=== PATIENT | female | born 1955 | race Caucasian/White ===

== ENCOUNTER 2018-06-07 17:35 | Inpatient (IN) | payer BC ==
[~2018-06-07] VITALS: Ht 172.7 cm; Wt 78.5 kg
--- NOTE | 2018-06-07 17:40 | NUR ---
Patient c/o sherri, 06/06, epigastric abdominal pain for the past 4-6 hours which radiates down to her right lower quadrant. A/O x4, VSS. Family at bedside. Waiting for MD patricio. will moniotr accordingly.
[2018-06-07] MEDS ORDERED: ONDANSETRON HCL/PF 4 MG/2 ML VIAL ONE (17:58)
[2018-06-07] MEDS ORDERED: HYDROMORPHONE INJ 2 MG/ML DISP.SYRIN ONE ×3 (17:58→21:03)
[2018-06-07] MEDS ORDERED: IV NS 0.9% 1,000 ML BAG IV ONE ×3 (18:00→19:30)
[2018-06-07] MEDS ORDERED: HYDROMORPHONE INJ 2 MG/ML DISP.SYRIN IV ONE ×3 (18:00→20:00)
[2018-06-07] MEDS ORDERED: ONDANSETRON HCL/PF 4 MG/2 ML VIAL IVP ONE (18:00)
[2018-06-07 18:03] LABS: BASOPHILS % (AUTO) 0.5 % (0.0-2.0); EOSINOPHILS % (AUTO) 0.5 % (0.0-6.0); HEMATOCRIT 39 % (33-45); HEMOGLOBIN 12.7 g/dL (11.5-14.8); LYMPHOCYTES # (AUTO) 0.3 /CMM (0.8-4.8); LYMPHOCYTES % (AUTO) 18.9 % (20.0-44.0); MEAN CORPUSCULAR HEMOGLOBIN 28 PG (26.0-33.0); MEAN CORPUSCULAR HGB CONC 32 g/dl (31.0-36.0); MEAN CORPUSCULAR VOLUME 85 fL (82-100); MONOCYTES # (AUTO) 0.1 /CMM (0.1-1.30); MONOCYTES % (AUTO) 6.4 % (2.0-12.0); NEUTROPHILS % (AUTO) 73.7 % (43.0-81.0); PLATELET COUNT (AUTO) 202 /CMM (150-450); RDW COEFFICIENT OF VARIATION 14.1 (11.5-15.0); RED BLOOD CELL COUNT(AUTO) 4.61 MIL/uL (4.0-5.2)
[2018-06-07 18:08] LABS: WHITE BLOOD COUNT (AUTO) 1.4 K/uL (4.3-11.0)
[2018-06-07 18:19] LABS: ALANINE AMINOTRANSFERASE 27 U/L (12-78); ALBUMIN 3.2 g/dL (3.4-5.0); ALKALINE PHOSPHATASE 45 U/L (46-116); ASPARTATE AMINOTRANSFERASE 14 U/L (15-37); BILIRUBIN,DIRECT 0.1 mg/dL (0.0-0.2); BILIRUBIN,TOTAL 0.4 mg/dL (0.2-1.0); CALCIUM, SERUM 10.7 mg/dL (8.5-10.1); CARBON DIOXIDE 23 mmol/L (21-32); CHLORIDE 104 mmol/L (98-107); CREATININE 1.3 mg/dL (0.6-1.3); GLUCOSE 116 mg/dL (74-106); LIPASE 174 U/L (73-393); SODIUM SERUM 140 mmol/L (136-145); TOTAL PROTEIN, SERUM 7.1 g/dL (6.4-8.2); UREA NITROGEN, BLOOD 26 mg/dL (7-18)
[2018-06-07 18:20] LABS: TROPONIN I < 0.017 ng/mL (0.00-0.056)
[2018-06-07 18:21] LABS: POTASSIUM 2.8 mmol/L (3.5-5.1)
--- NOTE | 2018-06-07 18:27 | NUR ---
CALLED FOR FADUMO BED
[2018-06-07] MEDS ORDERED: LOPE2CAP PO (18:29)
[2018-06-07] MEDS ORDERED: POMA3CAP PO (18:29)
[2018-06-07] MEDS ORDERED: DEXA4TAB PO (18:29)
[2018-06-07] MEDS ORDERED: ZOLP5TAB8 PO (18:29)
[2018-06-07] MEDS ORDERED: HYDR-548 PO (18:29)
[2018-06-07] MEDS ORDERED: PANT40TA2 PO (18:29)
[2018-06-07] MEDS ORDERED: MORP15TA7 PO (18:29)
[2018-06-07] MEDS ORDERED: TEMA15CA PO (18:29)
[2018-06-07] MEDS ORDERED: LEVO150T8 PO (18:29)
[2018-06-07] MEDS ORDERED: GABA-534 PO (18:29)
[2018-06-07] MEDS ORDERED: LORA1TAB PO (18:30)
[2018-06-07] MEDS ORDERED: PIPERACILLIN /TAZOBACTAM 3.375 G in IV D5W 50 ML IV ONE (18:30)
[2018-06-07] MEDS ORDERED: ASPI-1152 PO (18:30)
[2018-06-07] MEDS ORDERED: ONDA4TAB8 PO (18:30)
--- NOTE | 2018-06-07 18:37 | NUR ---
Dr. Andry Jacobo [phone]
--- NOTE | 2018-06-07 18:46 | NUR ---
CHANGED TO ICU BED HOUSE SUP INFORMED
--- NOTE | 2018-06-07 18:50 | NUR ---
CALLED HOUSE SUP FOR PICC LINE.
--- NOTE | 2018-06-07 18:56 | NUR ---
RECEIVED CALL FROM DR WASHINGTON TO PREPARE CONSENT FOR EXPLORATORY LAPAROTOMY. FAMILY WANTS TO TALK WITH SURGEON FIRST BEFORE SIGNING THE CONSENT.
[2018-06-07] MEDS: POTASSIUM CL. PREMIX PERIPHER. 50 ML IV SCH ×7 (19:00→23:55)
[2018-06-07] MEDS ORDERED: PIPERACILLIN /TAZOBACTAM 3.375 G VIAL IV ONE ×2 (19:07→23:16)
[2018-06-07] MEDS ORDERED: POTASSIUM CL. PREMIX PERIPHER. 200 ML ONE (19:16)
[2018-06-07 19:20] LABS: INR 0.94 (0.87-1.13)
--- NOTE | 2018-06-07 19:35 | NUR ---
POTASSIUM CHLORIDE IV BAG 10/31 STARTED IN ED
--- NOTE | 2018-06-07 19:57 | NUR ---
REPORT GIVEN TO ICU NURSE DELONTE FOR GUSTAVO
[2018-06-07] MEDS ORDERED: MORPHINE SULFATE INJ 2 MG/ML DISP.SYRIN IV PRN (20:00)
[2018-06-07] MEDS ORDERED: ACETAMINOPHEN 650 MG/SUPP.RECT RC PRN (20:00)
[2018-06-07] MEDS ORDERED: Z GUARD REMEDY 2 OZ OINT TP PRN (20:00)
[2018-06-07] MEDS ORDERED: IV NS 0.9% 1,000 ML IV SCH (20:00)
[2018-06-07] MEDS ORDERED: ONDANSETRON HCL/PF 4 MG/2 ML VIAL IVP PRN (20:00)
[2018-06-07] MEDS ORDERED: ACETAMINOPHEN 325 MG TABLET PO PRN (20:00)
--- NOTE | 2018-06-07 20:05 | NUR ---
POTASSIUM CHLORIDE BAG 2/4 STARTED IN ED. RECEIVED ORDERS FROM MD ORDOÑEZ TO CONTINUE THE REMAINING POTASSIUM CHLORIDE BAGS ON ADMISSION
[2018-06-07 20:09] LABS: BAND % (MANUAL) 14 % (0.0-5.0); EOSINOPHILS % (MANUAL) 1 % (0-4); LYMPHOCYTES % (MANUAL) 25 % (16-48); MONOCYTES % (MANUAL) 5 % (0-11.0); NEUTROPHILS % (MANUAL) 53 (42-76); REACTIVE LYMPHOCYTES 2 % (0-0)
--- NOTE | 2018-06-07 20:30 | NUR ---
COGNOS ANALYST NOTES Picc line RN at bedside,for PICC insertion.Consent obtained. Successfully inserted PICC line via YVONNE, as per Picc line RN gibson to use.
--- NOTE | 2018-06-07 20:30 | NUR ---
AUTO CAMP ATTENDANT NOTES Received patient from ER c/o abdominal pain with Ct scan perforated sigmoid colon ,for Explor Lap tonight.Patient awake,alert,in pain ,not in any distress .
[2018-06-07 20:37] VITALS: BP 171/80
[2018-06-07] MEDS ORDERED: SUCCINYLCHOLINE CHLORIDE 20 MG/ML VIAL ONE (21:03)
[2018-06-07] MEDS ORDERED: ROCURONIUM BROMIDE 50 MG/5 ML ONE ×2 (21:03→21:46)
[2018-06-07 21:09] VITALS: BP 139/44
--- NOTE | 2018-06-07 21:10 | NUR ---
CAREER GUIDANCE COUNSELOR NOTES came to see patient,spoke to patient and family explained the procediure ,consent obtained,signed by patient.Patient taken to the OR for Exploratory Laparotomy.
[2018-06-07] MEDS ORDERED: METRONIDAZOLE 500MG/ NS 100ML 100 ML IV ONE ×2 (21:30→21:36)
--- NOTE | 2018-06-07 22:50 | NUR ---
ASSOCIATE PROFESSOR OF KINESIOLOGY NOTES Patient back from OR,awake,alert with O2 via face mask,S/P Sigmoid Colon resection with Proximal Colostomy,Placement of Abdominal Drain.,Lysis of Adhesions, Post Op Diagnosis -Perforated Sigmoid Colon with Fecal Peritonitis and Adhesion.Patient stable,not in any distress but still in pain .Encouraged deep breathing exercises.Comfort care done,needs attended.
[2018-06-07 23:00] VITALS: BP 168/102
[2018-06-07 23:05] VITALS: BP 156/97
[2018-06-07 23:30] VITALS: BP 130/84
[2018-06-07] MEDS ORDERED: oxyCODONE IR immediate release 5 MG PO PRN (23:30)
[2018-06-07] MEDS ORDERED: NALOXONE HCL 0.4 MG/ML AMPUL IV PRN (23:30)
[2018-06-07] MEDS ORDERED: Potassium Chloride 20 MEQ in IV D5/0.45 NACL 1,000 ML IV PRN (23:30)
[2018-06-08] VITALS (16 sets, daily range): BP systolic 95–133; BP diastolic 36–82
--- NOTE | 2018-06-08 | NUR ---
ARCHIVIST ECONOMIC HISTORY NOTES Awake.alert,still with post op pain,awaiting TOOL DISTRIBUTOR pump to start TOOL DISTRIBUTOR Dilaudid for pain control.Operative dressing at mid abdomen with dressing dry and intact,Colostomy bag at LLQ with very scant bloody drainage,RAIMUNDO drain at LLQ with bulb suction with seropus drainage.Comfort care done.needs attended,family at bedside.
[2018-06-08] MEDS: POTASSIUM CL. PREMIX PERIPHER. 50 ML IV SCH ×2 (00:21→02:05)
[2018-06-08] MEDS: IV PREMIX D5 1/2NS + KCL 1,000 ML IV SCH ×2 (00:21→06:46)
[2018-06-08] MEDS: HYDROMORPHONE MDV 30 MG in IV NS 0.9% 15 ML, PCA TOTAL VOLUME 1 BAG IV PRN ×3 (00:28)
[2018-06-08] MEDS: METOCLOPRAMIDE HCL 10 MG/2 ML VIAL IV SCH ×5 (00:31→23:57)
--- NOTE | 2018-06-08 00:35 | NUR ---
CHAPTER RELATIONS ADMINISTRATOR NOTES Started WIG MAKER Dilaudid 1mg bolus,WIG MAKER dose 0.1 mg(may increase to 0.3 mg),Lock out-8 min.4 hour limit dose of 5mg.no continous dose.
[2018-06-08 04:46] LABS: EOSINOPHILS % (AUTO) 0.2 % (0.0-6.0); HEMATOCRIT 32 % (33-45); HEMOGLOBIN 10.6 g/dL (11.5-14.8); LYMPHOCYTES # (AUTO) 0.1 /CMM (0.8-4.8); LYMPHOCYTES % (AUTO) 3.5 % (20.0-44.0); MEAN CORPUSCULAR HEMOGLOBIN 29 PG (26.0-33.0); MEAN CORPUSCULAR HGB CONC 33 g/dl (31.0-36.0); MEAN CORPUSCULAR VOLUME 87 fL (82-100); MONOCYTES # (AUTO) 0.2 /CMM (0.1-1.30); MONOCYTES % (AUTO) 6.1 % (2.0-12.0); NEUTROPHILS # (AUTO) 3.1 /CMM (1.8-8.9); NEUTROPHILS % (AUTO) 90.2 % (43.0-81.0); PLATELET COUNT (AUTO) 145 /CMM (150-450); RDW COEFFICIENT OF VARIATION 14.8 (11.5-15.0); RED BLOOD CELL COUNT(AUTO) 3.71 MIL/uL (4.0-5.2); WHITE BLOOD COUNT (AUTO) 3.5 K/uL (4.3-11.0)
[2018-06-08 04:46] LABS: APPEARANCE,URINE CLEAR (CLEAR); BILIRUBIN,URINE NEGATIVE (NEGATIVE); BLOOD, URINE TRACE-INTA Ery/uL (NEGATIVE); COLOR,URINE YELLOW (YELLOW); KETONES,URINE NEGATIVE (NEGATIVE); LEUKOCYTE ESTERASE ,URINE NEGATIVE (NEGATIVE); NITRITE, URINE NEGATIVE (NEGATIVE); PH,URINE 7.5 (5.0-8.0); PROTEIN,URINE TRACE mg/dl (NEGATIVE); UGLUCOSE NEGATIVE (NEGATIVE); UROBILINOGEN,URINE 0.2 EU/dL (0.2)
[2018-06-08 04:49] LABS: CALCIUM, SERUM 7.6 mg/dL (8.5-10.1); CREATININE 1.2 mg/dL (0.6-1.3); MAGNESIUM 1.7 mg/dL (1.8-2.4); POTASSIUM 4.8 mmol/L (3.5-5.1)
[2018-06-08] MEDS: METRONIDAZOLE 500MG/ NS 100ML 500 MG in PREMIX 1 EA IV SCH ×3 (04:55→20:49)
[2018-06-08 05:00] LABS: BACTERIA,URINE None seen /HPF (None Seen); RBC,URINE 0-2 /HPF (0-2); SQUAMOUS EPITHELIAL CELL,UR Few /HPF (None Seen); WBC,URINE 0-2 /HPF (0-3)
[2018-06-08] MEDS ORDERED: CEFAZOLIN 1 GM in IV D5W 50 ML IV SCH (05:00)
[2018-06-08] MEDS ORDERED: ANCEF 1 GM/50 ML D5W IV SCH ×2 (05:00)
[2018-06-08] MEDS ORDERED: METRONIDAZOLE 500MG/ NS 100ML 500 MG in PREMIX 1 EA IV SCH (05:00)
[2018-06-08 05:13] LABS: BAND % (MANUAL) 7 % (0.0-5.0); LYMPHOCYTES % (MANUAL) 9 % (16-48); MONOCYTES % (MANUAL) 9 % (0-11.0); MYELOCYTES % 1 % (0-0); NEUTROPHILS % (MANUAL) 74 (42-76)
--- NOTE | 2018-06-08 07:15 | NUR ---
MERCURY WASHER NOTES RECEIVED PATIENT AOX3 -4 , NOT IN ACUTE DISTRESS , DENIES SOB , COMPLAINING OF PAIN AROUND ABDOMINAL AREA 02/04 , ON 3LPM NC SPO2 OF 100% , ST 110 ON BEDSIDE MONITOR , FC DRAINING WELL VIA GRAVITY WITH CLEAR YELLOW URINE , ABDOMINAL DRESSING C/D/I WITH NO ACTIVE BLEEDING NOTED , YVONNE PICC LINE WITH D5 1/2 NS WITH 20MEQ KCL @ 200ML/HR INFUSING WELL , DILAUDID NP PUMP SETTINGS ORDERED SETTINGS REVIEWED , PIV'S PATENT AND INTACT SL , ALL NEEDS ATTENDED , WILL CONTINUE TO MONITOR .
--- NOTE | 2018-06-08 07:16 | NUR ---
MFTS ELIGIO LEFT LOWER QUADRANT COLOSTOMY NOTED NO OUTPUT NOTED , RIGHT LOWER QUADRANT RAIMUNDO DRAIN SUCTIONING VIA NEGATIVE GRAVITY WITH SEROSANGINOUS OUTPUT ,
--- NOTE | 2018-06-08 07:30 | NUR ---
FRACTIONATING STILL OPERATOR NOTES Called the lab to repeat Potassium level (venous stick ,not from the line) K=4.8 this am but specimen was drawn from the PICC line (with IV infusing with potassium incorporation but IV stopped for 10-15 min.).Will follow result. 0710 report given to Jamaal TRUJILLO.
[2018-06-08] MEDS: PANTOPRAZOLE 40 MG VIAL IV SCH (09:15)
--- NOTE | 2018-06-08 09:30 | NUR ---
READERS' ADVISORY SERVICE LIBRARIAN NOTES SEEN AND EVALUATED BY DR WASHINGTON , DISCUSSED CURRENT LABS , PAIN OF 3-4/10 , AROUND ABDOMINAL AREA , ON DILAUDID BOILERMAKER INDUSTRIAL BOILERS PUMP SETTINGS ORDERED , SURGERY SITE C/D/I , RAIMUNDO DRAIN DRAINING WITH SEROSANGUINEOUS OUTPUT VIA NEGATIVE SUCTION BULB , , K OF 5.4 , IVF OF D5 1/2 NS WITH 20 MEQ KCL ON HOLD DUE TO K LEVEL , PER MD CHANGE IVF TO D5 1/2 NS @ 125ML/HR , ORDER PT AND AM LABS ROBBIE , MANDO TO TRANSFER TO MS
[2018-06-08] MEDS ORDERED: Potassium Chloride 20 MEQ in IV D5/0.45 NACL 1,000 ML IV PRN (10:00)
[2018-06-08] MEDS: IV D5/0.45 NACL 1,000 ML IV PRN ×2 (10:25→23:57)
[2018-06-08] MEDS: Magnesium 1GM/D5W 100ML PREMIX 100 ML IV SCH ×2 (10:26→12:01)
--- NOTE | 2018-06-08 10:45 | NUR ---
ALL SOURCE COLLECTION MANAGER NOTES SEEN AND EVALUATED BY DR ADAIR , DISCUSSED LABS , VSS , ON DILAUDID RETAIL EQUIPMENT ASSOCIATE PUMP , PAIN LEVEL IS 3-4/10 AROUND ABDOMINAL AREA , NPO STATUS , NO ACTIVE BLEEDING NOTED , MD AWARE .
--- NOTE | 2018-06-08 10:47 | NUR ---
RN NOTE Received call from lab, reporting GNR on BC, reported to Dr. Cortes in the unit at this time, with order to DC Ancef and change to Zosyn per pharmacy. Made Jamaal TRUJILLO aware for the lab result and new order.
--- NOTE | 2018-06-08 10:53 | NUR ---
FACING MACHINE OPERATOR NOTES CALLED DR WASHINGTON TO VERIFY DIET STATUS , PER MD KEEP NPO FOR TODAY .
--- NOTE | 2018-06-08 11:37 | NUR ---
MORTGAGE LOAN PROCESSING CLERK NOTES TRANSFERRED PT TO ROOM 311-2 VIA ACLS PROTOCOL , VSS , IVF INFUSING , MAIL HANDLER EQUIPMENT OPERATOR PUMP ATTACHED , REPORT GIVEN TO AJIT FOR CONTINUITY OF CARE , RAIMUNDO DRAIN INTACT ON NEGATIVE SUCTION , ABDOMINAL DRESSING C/D/I , NO BLEEDING NOTED .
--- NOTE | 2018-06-08 11:38 | NUR ---
RN NOTES TRANSFER FROM ICU REPORT GIVEN BY TONE. PATIENT IN STABLE CONDITION, NO ACUTE DISTRESS NOTED, BREATHING UNLABORED. DENIED ANY PAIN AT THIS TIME. SAFETY MEASURES IN PLACE. ORIENTED IN THE LEIGH. NEEDS ATTENDED. WILL CONTINUE TO MONITOR ACCORDINGLY.
[2018-06-08] MEDS: ZOSYN IVPB 3.375 G in IV D5W 50ml IV SCH ×3 (13:29→23:57)
--- NOTE | 2018-06-08 19:00 | NUR ---
MS RN NOTES PATIENT IN BED ALERT ORIENTED X 3, FAMILY AT BEDSIDE. NO ACUTE DISTRESS NOTED, BREATHING UNLABORED. NO SOB NOTED. IV ACCESS PATENT AND INTACT, NO REDNESS AND SWELLING NOTED, RUNNING ASPHALT ENGINEER WITH PRESCRIBED DOSE AND PRESCRIBED IVF. RAIMUNDO DRAIN INTACT, DRAINED 25CC. COLOSTOMY BAG INTACT. MIDLINE ABDOMEN SURGERY SITE SECURED WITH DRESSING , CLEAN AND DRY, NO BLEEDING NOTED. GARCIA CATHETER INTACT DRAINING WELL. DUE MEDICATIONS GIVEN, NO ASE NOTED. NEEDS ATTENDED AND ANTICIPATED. ENDORSED TO NIGHT NURSE FOR CONTINUITY OF CARE.
--- NOTE | 2018-06-08 19:30 | NUR ---
RN MS NOTES RECEIVED PATIENT IN BED AWAKE. ALERT AND ORIENTED X4. VERBALLY RESPONSIVE. FAMILY AT BEDSIDE. BREATHING EVEN AND UNLABORED. NO SOB NOTED. DENIES ANY PAIN OR DISCOMFORT AT THE MOMENT. YVONNE PICC LINE 3 LUMEN INTACT AND PATENT - CURRENTLY INFUSING D5 1/2 NS @ 100ML/HR. PATIENT ALSO ON CHAMBER WORKER PUMP. PATIENT NOTED WITH RAIMUNDO DRAIN ON RLQ - INTACT AND DRAINING WELL. COLOSTOMY BAG INTACT. SKIN DRY AND WARM TO TOUCH. ALL OTHER NEEDS ATTENDED TO. CALL LIGHT WITHIN REACH. BED ON LOWEST LOCKED POSITION. WILL CONTINUE TO MONITOR.
[2018-06-08] MEDS ORDERED: PIPERACILLIN /TAZOBACTAM 3.375 G in IV NS 0.9% 100 ML IV SCH ×3 (20:00)
[2018-06-08] MEDS: ENOXAPARIN SODIUM 40 MG/0.4 ML DISP.SYRIN SQ SCH (20:49)
[2018-06-09] MEDS: METRONIDAZOLE 500MG/ NS 100ML 500 MG in PREMIX 1 EA IV SCH ×3 (04:37→21:00)
[2018-06-09] MEDS: METOCLOPRAMIDE HCL 10 MG/2 ML VIAL IV SCH ×4 (05:47→23:23)
[2018-06-09] MEDS: ZOSYN IVPB 3.375 G in IV D5W 50ml IV SCH ×4 (05:47→23:27)
--- NOTE | 2018-06-09 06:31 | NUR ---
RN MS NOTES PATIENT RESTING IN BED. ALERT AND ORIENTED X4. VERBALLY RESPONSIVE. BREATHING EVEN AND UNLABORED. NO SOB NOTED. DENIES ANY PAIN OR DISCOMFORT AT THE MOMENT. YVONNE PICC LINE 3 LUMEN INTACT AND PATENT - CURRENTLY INFUSING D5 1/2 NS @ 100ML/HR. LEFT AC #20 INTACT AND PATENT. PATIENT ON ORDNANCE ARTIFICER HELPER PUMP. PATIENT ALSO WITH RAIMUNDO DRAIN ON RLQ - INTACT AND DRAINING WELL - TOOK OUT 50CC THROUGHOUT SHIFT. COLOSTOMY BAG IN PLACE AND INTACT. GARCIA CATH INTACT AND DRAINING CLEAR YELLOW URINE - TOOK OUT 550CC THROUGHOUT SHIFT. SKIN DRY AND WARM TO TOUCH. ALL OTHER NEEDS ATTENDED TO. KEPT CLEAN AND COMFORTABLE. CALL LIGHT WITHIN REACH. BED ON LOWEST LOCKED POSITION. WILL ENDORSE TO ONCOMING NURSE FOR CONTINUITY OF CARE.
[2018-06-09 06:39] LABS: EOSINOPHILS % (AUTO) 0.8 % (0.0-6.0); HEMATOCRIT 29 % (33-45); HEMOGLOBIN 9.5 g/dL (11.5-14.8); LYMPHOCYTES # (AUTO) 0.2 /CMM (0.8-4.8); LYMPHOCYTES % (AUTO) 3.8 % (20.0-44.0); MEAN CORPUSCULAR HEMOGLOBIN 29 PG (26.0-33.0); MEAN CORPUSCULAR HGB CONC 33 g/dl (31.0-36.0); MEAN CORPUSCULAR VOLUME 88 fL (82-100); MONOCYTES # (AUTO) 0.2 /CMM (0.1-1.30); MONOCYTES % (AUTO) 2.9 % (2.0-12.0); NEUTROPHILS # (AUTO) 4.9 /CMM (1.8-8.9); NEUTROPHILS % (AUTO) 92.5 % (43.0-81.0); PLATELET COUNT (AUTO) 127 /CMM (150-450); RDW COEFFICIENT OF VARIATION 15.2 (11.5-15.0); WHITE BLOOD COUNT (AUTO) 5.3 K/uL (4.3-11.0)
[2018-06-09 06:55] LABS: CALCIUM, SERUM 7.8 mg/dL (8.5-10.1); CREATININE 0.9 mg/dL (0.6-1.3); MAGNESIUM 2.2 mg/dL (1.8-2.4); PHOSPHORUS 2.4 mg/dL (2.5-4.9); POTASSIUM 4.2 mmol/L (3.5-5.1)
--- NOTE | 2018-06-09 07:45 | NUR ---
RN NOTES PATIENT A/OX4, BREATHING EVEN AND UNLABORED NO SOB NOTED, KEPT COMFORTABLE, PT STATED SHE'S HUNGRY, PATIENT REQUESTED TO REMOVE SCD PUMPS, EXPLAINED RISKS AND BENEFITS, PT VERBALIZED UNDERSTANDING. IVF INFUSING AND TOLERATING WELL. NEEDS ATTENDED, CALL LIGHT WITHIN REACH, WILL CONTINUE TO MONITOR.
[2018-06-09] MEDS ORDERED: KEY,NONCONTROL,TO KEEP IN PYXI 1 EA MC ONE ×2 (07:49→16:30)
[2018-06-09 08:00] VITALS: BP 135/73
[2018-06-09] MEDS: HYDROMORPHONE MDV 30 MG in IV NS 0.9% 15 ML, PCA TOTAL VOLUME 1 BAG IV PRN ×3 (08:01)
[2018-06-09 08:35] LABS: BAND % (MANUAL) 11 % (0.0-5.0); EOSINOPHILS % (MANUAL) 1 % (0-4); LYMPHOCYTES % (MANUAL) 3 % (16-48); MONOCYTES % (MANUAL) 2 % (0-11.0); NEUTROPHILS % (MANUAL) 82 (42-76); REACTIVE LYMPHOCYTES 1 % (0-0)
[2018-06-09] MEDS: PANTOPRAZOLE 40 MG VIAL IV SCH (08:38)
[2018-06-09] MEDS ORDERED: K PHOS NEUTRAL 250 MG TABLET PO ONE (11:00)
[2018-06-09] MEDS: IV D5/0.45 NACL 1,000 ML IV PRN (11:14)
--- NOTE | 2018-06-09 12:43 | NUR ---
RN NOTES GARCIA CATHETER REMOVED ORDERED BY DR. WASHINGTON. PATIENT TOLERATED PROCEDURE WELL.
[2018-06-09 16:00] VITALS: BP 135/80
--- NOTE | 2018-06-09 16:15 | NUR ---
RN NOTES RECEIVED ORDER FROM DR. WASHINGTON TO DISCONTINUE DILAUDID YOUTH LEADER AND TO GIVE PATIENT DILAUDID 1MG Q2HRS PRN FOR PAIN. Addendum: 06/09/18 at 1807 by MADIE HINES RN ADDENDUM: PATIENT'S VOIDING TRIAL IS SUCCESSFUL, PATIENT WAS ABLE TO VOID X1.
[2018-06-09] MEDS ORDERED: HYDROMORPHONE 1 MG/1 ML DISP.SYRIN IV PRN (16:30)
--- NOTE | 2018-06-09 17:30 | NUR ---
RN NOTES PATIENT'S TEMP SHOWS 100.5, INFORMED DR. WASHINGTON, RECEIVED ORDER FOR TYLENOL AND BLOOD CULTURE. BUT BLOOD CULTURE WAS ALREADY COLLECTED THIS MORNING.
[2018-06-09] MEDS ORDERED: ACETAMINOPHEN 325 MG TABLET PO PRN (18:00)
[2018-06-09] MEDS: HYDROMORPHONE INJ 2 MG/ML DISP.SYRIN IV PRN ×2 (18:13→20:39)
--- NOTE | 2018-06-09 18:44 | NUR ---
RN NOTES PATIENT A/OX4, DAUGHTER AT BEDSIDE, PAIN CONTROLLED AT THIS TIME, VITALS STABLE, TEMP 98.6, RAIMUNDO DRAIN WITH A TOTAL OF 40CC OUTPUT THROUGHOUT THE SHIFT, PATIENT ABLE TO VOID, NEEDS ATTENDED AND MET, CALL LIGHT WITHIN REACH, WILL ENDORSE TO MAINTENANCE JOB TITLES FOR GUSTAVO.
--- NOTE | 2018-06-09 19:05 | NUR ---
MS RN INITIAL NOTES Received patient on bed, awake, alert, oriented x 4. Son and daughter at bedside. Breathing even and unlabored. Not in any distress. Denies any pain at this time. YVONNE 3-lumen PICC LINE intact and patent, currently infusing D5 1/2 NS AT 125mL/hr. RAIMUNDO drain on RLQ in place. Colostomy bag intact. Safety measures in place. Patient stable as endorsed by the morning shift RN. Will monitor accordingly
[2018-06-09 20:00] VITALS: BP 129/80
[2018-06-09] MEDS: ENOXAPARIN SODIUM 40 MG/0.4 ML DISP.SYRIN SQ SCH (20:59)
[2018-06-10] MEDS: HYDROMORPHONE INJ 2 MG/ML DISP.SYRIN IV PRN ×5 (01:04→20:36)
[2018-06-10] MEDS: IV D5/0.45 NACL 1,000 ML IV PRN ×2 (01:25→20:35)
--- NOTE | 2018-06-10 04:50 | NUR ---
RN NOTES Patient called for assistance to go to the bathroom. Found that her colostomy bag is leaking. Colostomy bag changed. Dressing on RAIMUNDO drain also changed. Cleaned the site near the abdominal dressing as much as I can.
[2018-06-10] MEDS: METOCLOPRAMIDE HCL 10 MG/2 ML VIAL IV SCH ×3 (05:02→18:19)
[2018-06-10] MEDS: METRONIDAZOLE 500MG/ NS 100ML 500 MG in PREMIX 1 EA IV SCH (05:08)
[2018-06-10] MEDS: ZOSYN IVPB 3.375 G in IV D5W 50ml IV SCH ×3 (06:25→18:19)
[2018-06-10 07:51] LABS: EOSINOPHILS % (AUTO) 0.4 % (0.0-6.0); HEMATOCRIT 27 % (33-45); HEMOGLOBIN 8.9 g/dL (11.5-14.8); LYMPHOCYTES # (AUTO) 0.2 /CMM (0.8-4.8); LYMPHOCYTES % (AUTO) 2.7 % (20.0-44.0); MEAN CORPUSCULAR HEMOGLOBIN 29 PG (26.0-33.0); MEAN CORPUSCULAR HGB CONC 33 g/dl (31.0-36.0); MEAN CORPUSCULAR VOLUME 86 fL (82-100); MONOCYTES # (AUTO) 0.3 /CMM (0.1-1.30); MONOCYTES % (AUTO) 5.5 % (2.0-12.0); NEUTROPHILS # (AUTO) 5.4 /CMM (1.8-8.9); NEUTROPHILS % (AUTO) 91.4 % (43.0-81.0); PLATELET COUNT (AUTO) 142 /CMM (150-450); RDW COEFFICIENT OF VARIATION 15.5 (11.5-15.0); RED BLOOD CELL COUNT(AUTO) 3.12 MIL/uL (4.0-5.2); WHITE BLOOD COUNT (AUTO) 5.9 K/uL (4.3-11.0)
--- NOTE | 2018-06-10 07:55 | NUR ---
ms rn received on bed, awake,alert,oriented x4,not in any form of distress, respirations even and unlabored, no sob noted, denies pain at this time,all needs attended.
[2018-06-10 08:00] VITALS: BP 134/85
--- NOTE | 2018-06-10 08:00 | NUR ---
RN NOTES Patient remains stable. Alert, oriented x 4. No complaints as of this time. Peripheral IV infusing well. RAIMUNDO drain in place, emptied 30cc serosanguinous. Colostomy bag in place, emptied around 300mL. Safety measures in place. Endorsed GUSTAVO to morning shift RN
[2018-06-10 08:05] LABS: CALCIUM, SERUM 7.7 mg/dL (8.5-10.1); CREATININE 0.8 mg/dL (0.6-1.3); PHOSPHORUS 2.2 mg/dL (2.5-4.9); POTASSIUM 2.9 mmol/L (3.5-5.1)
[2018-06-10 08:19] LABS: BAND % (MANUAL) 3 % (0.0-5.0); LYMPHOCYTES % (MANUAL) 1 % (16-48); MONOCYTES % (MANUAL) 1 % (0-11.0); NEUTROPHILS % (MANUAL) 95 (42-76)
[2018-06-10] MEDS ORDERED: NEUTRA PHOS 1 POWD.PACKET PO ONE (10:00)
--- NOTE | 2018-06-10 10:00 | NUR ---
MS RN WAS SEEN BYDR. PADMINI Alejandra/ ORDERS MADE AND CARRIED OUT.
[2018-06-10] MEDS: PANTOPRAZOLE 40 MG VIAL IV SCH (10:01)
[2018-06-10] MEDS: POTASSIUM CHLORIDE 20 MEQ POWDER PACKET PO SCH ×3 (10:04→18:20)
--- NOTE | 2018-06-10 10:11 | NUR ---
WOUND CARE CONSULT: PT PRESENTS WITH ABDOMINAL INCISION (CLOSED), RAIMUNDO DRAIN AND COLOSTOMY WITH LIQUID STOOL. NURSING STAFF TO CONTINUE PT EDUCATION FOR COLOSTOMY CARE AND RECOMMENDATIONS MADE FOR SKIN PROTECTION. DISCUSSED WITH NURSING STAFF. RECOMMEND OSTOMY NURSE FOR HOME HEALTH AFTER DISCHARGE. WILL SEE PRN. IN AGREEMENT WITH PLAN OF CARE.
--- NOTE | 2018-06-10 11:00 | NUR ---
MS RN DRESSING TO BOTH ABD, CHANGED,TOLERATED WELL.
[2018-06-10] MEDS: METRONIDAZOLE 500 MG TABLET PO SCH ×2 (12:15→20:35)
[2018-06-10 16:00] VITALS: BP 140/83
--- NOTE | 2018-06-10 18:00 | NUR ---
MS RN ON BED, NO DISTRESS NOTED.
--- NOTE | 2018-06-10 19:45 | NUR ---
MS KEVIN INITIAL NOTES RECEIVED REPORT FROM AM NURSE AND SEEN PATIENT WALKING IN A HALLWAY WITH HER FAMILY AT HER SIDE, NO SIGNS OF ANY DISCOMFORT OR ANY ACUTE DISTRESS. STILL WITH IVF OF D51/2 NS AT 125ML/HR INFUSING ON HER RIGHT UPPER ARM . WILL CONTINUE MONITORING.
[2018-06-10 20:00] VITALS: BP 140/83
[2018-06-10] MEDS: ENOXAPARIN SODIUM 40 MG/0.4 ML DISP.SYRIN SQ SCH (20:35)
--- NOTE | 2018-06-10 20:36 | NUR ---
ms kayce notes c/o left and right abdominal pain, dilaudid 1 mg given tur ivp by another nurse as ordered. will re- assess later. due meds also given and kept her comfortable at all times. will continue monitoring. place call light at reach.
--- NOTE | 2018-06-11 | NUR ---
MS KEVIN NOTES PT RESTING COMFORTABLY IN BED WITHOUT ANY ACUTE DISTRESS NOTED. EMPTY HER COLOSTOMY BAG ,NOTICED FULL OF AIR AND DARK GREEN LIQUID OUTPUT NOTED . PT DENIES ANY DISCOMFORT. KEPT HER WARM AND COMFORTABLE AT ALL TIMES. WILL CONTINUE TO MONITOR.
[2018-06-11] MEDS: ZOSYN IVPB 3.375 G in IV D5W 50ml IV SCH ×4 (00:12→18:02)
[2018-06-11] MEDS: METOCLOPRAMIDE HCL 10 MG/2 ML VIAL IV SCH ×4 (00:12→18:02)
[2018-06-11] MEDS: METRONIDAZOLE 500 MG TABLET PO SCH ×3 (05:28→20:27)
[2018-06-11] MEDS: IV D5/0.45 NACL 1,000 ML IV PRN (05:29)
--- NOTE | 2018-06-11 06:04 | NUR ---
MS MECHATRONICS TECHNOLOGIST NOTES PT WOKE UP AND ROUTINE MEDS GIVEN AND NOTICED COLOSTOMY BAG LEAKING AND FULL OF AIR. CHANGED TO A NEW ONE SECURED CLOSELY. ANOTHER ANTIBIOTIC ZOSYN AND REGLAN WILL BE ADMINISTERED BY ANOTHER NURSE ORDERED. MORNING CARE ALSO DONE WITH THE HELPED OF GABRIELLE Burton COMPLETE BEDDING CHANGED. KEPT HER WARM AND COMFORTABLE AT ALL TIMES. PT STATED "THANK YOU". PLACE CALL LIGHT AT REACH.
--- NOTE | 2018-06-11 07:42 | NUR ---
MS KEVIN CLOSING NOTES. PT WOKE UP AND ASSISTING TO USED THE RESTROOM , DENIES ANY PAIN OR ANY DISCOMFORT. DR CELESTE CAME TO DC THE RAIMUNDO BUT PT STILL IN THE RESTROOM . COLOSTOMY BAG STARTED LEAKING WHILE SITTING INSIDE THE REST ROOM AND CHANGE WITH NEW ONE SECURED WITH PAPER TAPE.IVF STILL INFUSING AND ALL DUE MEDS GIVEN AAND ALL NEEDS MET. KEPT HER WARM AND COMFORTABLE AT ALL TIMES. ENDORSE TO AM NURSE NGOZI FOR CONTINUITY OF CARE.
[2018-06-11 08:00] VITALS: BP 157/79
--- NOTE | 2018-06-11 08:00 | NUR ---
MS RN RECEIVED ON BED, AWAKE,ALERT,ORIENTED X4,NOT IN ANY FORM OF DISTRESS, RESPIRATIONS EVEN AND UNLABORED,NO SOB NOTED, LUNGS ARE CLEAR,ABDOMEN SOFT,POSITIVE BOWEL SOUNDS, DENIES PAIN AT THIS TIME,S/P ABD SX W/ DRESSING DRY AND INTACT, COLOSTOMY LEACKING AT THIS TIME, WILL FIXED COLOSTOMY TODAY.
[2018-06-11 08:20] LABS: HEMATOCRIT 27 % (33-45); HEMOGLOBIN 9.1 g/dL (11.5-14.8); MEAN CORPUSCULAR HEMOGLOBIN 29 PG (26.0-33.0); MEAN CORPUSCULAR HGB CONC 33 g/dl (31.0-36.0); MEAN CORPUSCULAR VOLUME 86 fL (82-100); PLATELET COUNT (AUTO) 171 /CMM (150-450); RDW COEFFICIENT OF VARIATION 15.6 (11.5-15.0); RED BLOOD CELL COUNT(AUTO) 3.16 MIL/uL (4.0-5.2); WHITE BLOOD COUNT (AUTO) 4.4 K/uL (4.3-11.0)
--- NOTE | 2018-06-11 08:30 | NUR ---
MS RN BREAKFAST SERVED,DUE MEDS GIVEN,TOLERATYED WELL, COLOSTOMY BAG CHANGED AT THIS TIME.
[2018-06-11 08:52] LABS: LYMPHOCYTES % (MANUAL) 9 % (16-48); MONOCYTES % (MANUAL) 11 % (0-11.0); NEUTROPHILS % (MANUAL) 80 (42-76)
[2018-06-11 09:10] LABS: CALCIUM, SERUM 7.6 mg/dL (8.5-10.1); CREATININE 0.7 mg/dL (0.6-1.3); MAGNESIUM 1.8 mg/dL (1.8-2.4); PHOSPHORUS 1.6 mg/dL (2.5-4.9)
[2018-06-11 09:18] LABS: POTASSIUM 2.4 mmol/L (3.5-5.1)
[2018-06-11] MEDS: HYDROMORPHONE INJ 2 MG/ML DISP.SYRIN IV PRN ×3 (10:25→22:23)
[2018-06-11] MEDS: PANTOPRAZOLE 40 MG VIAL IV SCH (10:25)
--- NOTE | 2018-06-11 11:00 | NUR ---
MS RN WAS SEEN BY RODDY DAS W/ ORDERS MADE AND CARRIED OUT.
[2018-06-11] MEDS ORDERED: NEUTRA PHOS 1 POWD.PACKET PO ONE (11:30)
[2018-06-11] MEDS: POTASSIUM CHLORIDE 20 MEQ TAB.PRT.SR PO SCH (12:44)
[2018-06-11 15:30] LABS: CALCIUM, SERUM 7.3 mg/dL (8.5-10.1); CREATININE 0.7 mg/dL (0.6-1.3)
[2018-06-11] MEDS ORDERED: POTA20TA83 PO (15:43)
[2018-06-11 16:00] VITALS: BP 127/80
--- NOTE | 2018-06-11 16:00 | NUR ---
MS CASSANDRA RAIMUNDO DRAIN WAS REMOVED BY RODDY DAS.ALL NEEDS ATTENDED.
--- NOTE | 2018-06-11 18:28 | NUR ---
MS RN ON BED, NO DISTRESS NOTED,ALL NEEDS ATTENDED.
--- NOTE | 2018-06-11 19:15 | NUR ---
MS RN INITIAL NOTES Report received at bedside. Patient received in bed, awake and verbally responsive. Alert and oriented x4. Complained of pain; pain mgmt given @1900. Will reassess for effectiveness. No SOB/labored breathing noted. Colostomy bag in place on LLQ. Family member at bedside. Safety measures in place. Will continue to monitor and assess patient
[2018-06-11 20:00] VITALS: BP 124/72
[2018-06-11] MEDS: ENOXAPARIN SODIUM 40 MG/0.4 ML DISP.SYRIN SQ SCH (20:27)
[2018-06-11] MEDS ORDERED: Magnesium 1 GM/2 ML VIAL IV ONE (22:00)
[2018-06-11] MEDS ORDERED: Magnesium 1GM/D5W 100ML PREMIX PIGGYBACK IV ONE (22:00)
[2018-06-11] MEDS: POTASSIUM CL. PREMIX PERIPHER. 50 ML IV SCH ×3 (22:27→23:59)
[2018-06-12] MEDS: METOCLOPRAMIDE HCL 10 MG/2 ML VIAL IV SCH ×4 (00:06→16:14)
[2018-06-12] MEDS: ZOSYN IVPB 3.375 G in IV D5W 50ml IV SCH ×4 (00:06→16:14)
[2018-06-12] MEDS: POTASSIUM CL. PREMIX PERIPHER. 50 ML IV SCH (00:52)
[2018-06-12] MEDS: IV D5/0.45 NACL 1,000 ML IV PRN (01:06)
[2018-06-12] MEDS: HYDROMORPHONE INJ 2 MG/ML DISP.SYRIN IV PRN ×3 (02:13→13:48)
[2018-06-12] MEDS: METRONIDAZOLE 500 MG TABLET PO SCH ×2 (05:07→13:48)
--- NOTE | 2018-06-12 07:04 | NUR ---
MS RN CLOSING NOTES Report given. Patient remained in bed, intermittently sleeping, easily aroused. Alert and oriented x4, verbally responsive. Complains of pain with help of pain mgmt. No SOB/labored breathing noted. Not in any type of distress. Potassium and magnesium replaced. All needs anticipated and met. Continue on Antibiotic treatment per ID. Colostomy in place; collected 600cc. PLAN: Discharge to home today with home health for IV antibiotics. Safety measures in place. Bed in lowest position with call light within reach. Endorsed to Karen//CASSANDRA Mclean
--- NOTE | 2018-06-12 07:55 | NUR ---
MS RN RECEIVED ON BED, AWAKE,ALERT,ORIENTED X4, NOT IN ANY FORM OF DISTRESS,RESPIRATIONS EVEN AND UNLABORED,NO SOB NOTED, LUNGS ARE CLEAR,ABDOMEN SOFT,POSITIVE BOWEL SOUNDS,DENIES PAIN AT THIS TIME,ALL NEEDS ATTENDED.
[2018-06-12 08:00] VITALS: BP 116/70
--- NOTE | 2018-06-12 08:45 | NUR ---
MS TRUJILLO BREAKFAST SERVED,DUE MEDS GIVEN,TOLERATED WELL.
[2018-06-12] MEDS ORDERED: POTASSIUM CHLORIDE 20 MEQ TAB.PRT.SR PO SCH (09:00)
[2018-06-12] MEDS: PANTOPRAZOLE 40 MG VIAL IV SCH (09:38)
[2018-06-12] MEDS: POTASSIUM CHLORIDE 20 MEQ TAB.PRT.SR PO SCH (09:38)
[2018-06-12 16:00] VITALS: BP 129/69
[2018-06-12] MEDS ORDERED: NEUTRA PHOS 1 POWD.PACKET PO ONE (16:00)
--- NOTE | 2018-06-12 16:00 | NUR ---
ms rn all meds given, ready for discharge, cn notified.
== END 2018-06-12 18:09 | disposition home health service (06) | DRG 853 ==
LOC: ER 17:41 → ICU 19:20 → MED 06-08 11:30
PROC: 02HV33Z Insertion of Infusion Device into Superior Vena Cava, Percutaneous Approach (ICD-10-PCS; principal; 2018-06-07 21:00)
PROC: B548ZZA Ultrasonography of Superior Vena Cava, Guidance (ICD-10-PCS; principal; 2018-06-07 21:00)
PROC: 0DBN0ZZ Excision of Sigmoid Colon, Open Approach (ICD-10-PCS; principal; 2018-06-07 21:00)
PROC: 0D1N0Z4 Bypass Sigmoid Colon to Cutaneous, Open Approach (ICD-10-PCS; principal; 2018-06-07 21:00)
DX: A41.9 Sepsis, unspecified organism (principal); E43 Unspecified severe protein-calorie malnutrition; N17.0 Acute kidney failure with tubular necrosis; K63.1 Perforation of intestine (nontraumatic); N73.3 Female acute pelvic peritonitis; C90.00 Multiple myeloma not having achieved remission; Z94.81 Bone marrow transplant status; D70.1 Agranulocytosis secondary to cancer chemotherapy; K66.0 Peritoneal adhesions (postprocedural) (postinfection); T45.1X5A Adverse effect of antineoplastic and immunosuppressive drugs, initial encounter; Y92.009 Unspecified place in unspecified non-institutional (private) residence as the place of occurrence of the external cause; D69.6 Thrombocytopenia, unspecified; E83.42 Hypomagnesemia; E87.6 Hypokalemia; E83.39 Other disorders of phosphorus metabolism; F32.9 Major depressive disorder, single episode, unspecified; F41.9 Anxiety disorder, unspecified; K21.9 Gastro-esophageal reflux disease without esophagitis; Z92.3 Personal history of irradiation; Z85.850 Personal history of malignant neoplasm of thyroid; M81.0 Age-related osteoporosis without current pathological fracture; Z92.21 Personal history of antineoplastic chemotherapy; E88.09 Other disorders of plasma-protein metabolism, not elsewhere classified; Z68.26 Body mass index [BMI] 26.0-26.9, adult; M19.90 Unspecified osteoarthritis, unspecified site; D64.9 Anemia, unspecified; E89.0 Postprocedural hypothyroidism; K57.30 Diverticulosis of large intestine without perforation or abscess without bleeding
CPT/HCPCS: 36415; 36569; 71045-TC; 80048-TC; 80076-TC; 81000-TC; 83605-TC; 83690-TC; 83735-TC; 84100-TC; 84132-TC; 84484-TC; 85025-TC; 85730-TC; 86850-TC; 87040-TC; 87070-TC; 87075-TC; 87081-TC; 87186-TC; 88307-TC; A4216; A4362; A4606; A6209; A6402; A6403; C1751; C9113; J0330; J0690; J1100; J1170; J1650; J1885; J2270; J2405; J2543; J2704; J2710; J2765; J3475; J3480; J3490; J7030; J7040; J7060; Z7610

== ENCOUNTER 2018-06-23 07:50 | Inpatient (IN) | payer BC ==
[~2018-06-23] VITALS: Ht 172.7 cm; Wt 82.3 kg
[~2018-06-23 07:50] MED LIST: GABA-534 PO; HYDR-548 PO; LEVO150T8 PO; LOPE2CAP PO; LORA1TAB PO; MORP15TA7 PO; ONDA4TAB8 PO; PANT40TA2 PO; POMA3CAP PO; POTA20TA83 PO; TEMA15CA PO
[2018-06-23] MEDS ORDERED: ONDANSETRON HCL/PF 4 MG/2 ML VIAL ONE (08:11)
[2018-06-23] MEDS ORDERED: HYDROMORPHONE INJ 2 MG/ML DISP.SYRIN ONE (08:11)
[2018-06-23] MEDS ORDERED: HYDROMORPHONE INJ 2 MG/ML DISP.SYRIN IV ONE (08:30)
[2018-06-23] MEDS ORDERED: ONDANSETRON HCL/PF 4 MG/2 ML VIAL IVP ONE (08:30)
[2018-06-23] MEDS ORDERED: IV NS 0.9% 1,000 ML BAG IV ONE (08:30)
[2018-06-23 08:55] LABS: EOSINOPHILS % (AUTO) 0.2 % (0.0-6.0); HEMATOCRIT 34 % (33-45); HEMOGLOBIN 10.7 g/dL (11.5-14.8); LYMPHOCYTES # (AUTO) 0.6 /CMM (0.8-4.8); LYMPHOCYTES % (AUTO) 8.6 % (20.0-44.0); MEAN CORPUSCULAR HEMOGLOBIN 27 PG (26.0-33.0); MEAN CORPUSCULAR HGB CONC 32 g/dl (31.0-36.0); MEAN CORPUSCULAR VOLUME 85 fL (82-100); MONOCYTES # (AUTO) 0.3 /CMM (0.1-1.30); MONOCYTES % (AUTO) 4.3 % (2.0-12.0); NEUTROPHILS # (AUTO) 6.1 /CMM (1.8-8.9); NEUTROPHILS % (AUTO) 86.9 % (43.0-81.0); PLATELET COUNT (AUTO) 557 /CMM (150-450); RDW COEFFICIENT OF VARIATION 15.7 (11.5-15.0); RED BLOOD CELL COUNT(AUTO) 3.99 MIL/uL (4.0-5.2)
[2018-06-23 09:21] LABS: CALCIUM, SERUM 9.5 mg/dL (8.5-10.1); CREATININE 0.9 mg/dL (0.6-1.3); INR 1.05 (0.87-1.13); POTASSIUM 3.2 mmol/L (3.5-5.1)
[2018-06-23 09:27] LABS: ALBUMIN 2.4 g/dL (3.4-5.0); BILIRUBIN,TOTAL 0.2 mg/dL (0.2-1.0); TOTAL PROTEIN, SERUM 7.4 g/dL (6.4-8.2)
[2018-06-23] MEDS ORDERED: IOHEXOL-300 100 ML VIAL IV ONE (09:35)
[2018-06-23] MEDS ORDERED: CT SWABBABLE VALVE TRANS SET 1 EA INFUS.SET MC ONE (09:36)
[2018-06-23] MEDS ORDERED: IV NS 0.9% 250 ML IV ONE (09:36)
[2018-06-23] MEDS ORDERED: MORPHINE SULFATE INJ 2 MG/ML DISP.SYRIN IV ONE ×2 (10:30→16:00)
[2018-06-23] MEDS ORDERED: MORPHINE SULFATE INJ 4 MG/ML DISP.SYRIN ONE (11:38)
[2018-06-23 13:00] VITALS: BP 123/80
[2018-06-23 13:01] VITALS: BP 123/80
[2018-06-23] MEDS ORDERED: IV D5W 1,000 ML IV PRN (13:20)
[2018-06-23] MEDS ORDERED: MAGNESIUM HYDROXIDE 30 ML UDC PO PRN (13:30)
[2018-06-23] MEDS ORDERED: ZOLPIDEM TARTRATE 5 MG TABLET PO PRN (13:30)
[2018-06-23] MEDS ORDERED: HYDROCODONE/APAP 5/325MG 1 EACH TABLET PO PRN (13:30)
[2018-06-23] MEDS ORDERED: MAG HYDROX/AL HYDROX/SIMETH 30 ML UDC PO PRN (13:30)
[2018-06-23] MEDS ORDERED: MORPHINE SULFATE INJ 2 MG/ML DISP.SYRIN IV PRN (13:30)
[2018-06-23] MEDS ORDERED: Z GUARD REMEDY 2 OZ OINT TP PRN (13:30)
[2018-06-23] MEDS ORDERED: ACETAMINOPHEN 325 MG TABLET PO PRN (13:30)
[2018-06-23] MEDS ORDERED: IV D5/0.45 NACL 500 ML IV ONE (14:00)
[2018-06-23] MEDS ORDERED: MORPHINE SULFATE INJ 4 MG/ML DISP.SYRIN IV PRN ×2 (14:30→18:30)
[2018-06-23] MEDS: METRONIDAZOLE 500MG/ NS 100ML 500 MG in PREMIX 1 EA IV SCH ×2 (15:00→22:06)
[2018-06-23] MEDS: IV D5/0.45 NACL 1,000 ML IV PRN (15:00)
[2018-06-23] MEDS: POTASSIUM CL. PREMIX PERIPHER. 50 ML IV SCH ×3 (15:55→17:36)
[2018-06-23 16:00] VITALS: BP 116/71
[2018-06-23] MEDS ORDERED: MORPHINE SULFATE INJ 4 MG/ML DISP.SYRIN IV ONE (16:00)
[2018-06-23] MEDS: PIPERACILLIN /TAZOBACTAM 2.25 G in IV D5W 50 ML IV SCH ×2 (16:35→20:49)
[2018-06-23] MEDS: ONDANSETRON HCL/PF 4 MG/2 ML VIAL IVP PRN ×2 (16:45→22:43)
[2018-06-23] MEDS: MORPHINE SULFATE INJ 4 MG/ML DISP.SYRIN IV PRN ×3 (18:22→22:43)
[2018-06-23 20:00] VITALS: BP 125/85
[2018-06-24] MEDS: PIPERACILLIN /TAZOBACTAM 2.25 G in IV D5W 50 ML IV SCH ×4 (02:32→21:23)
[2018-06-24] MEDS: MORPHINE SULFATE INJ 4 MG/ML DISP.SYRIN IV PRN ×8 (02:34→21:24)
[2018-06-24] MEDS: IV D5/0.45 NACL 1,000 ML IV PRN ×2 (02:44→17:56)
[2018-06-24] MEDS: METRONIDAZOLE 500MG/ NS 100ML 500 MG in PREMIX 1 EA IV SCH ×3 (05:22→22:04)
[2018-06-24] MEDS: ONDANSETRON HCL/PF 4 MG/2 ML VIAL IVP PRN ×2 (06:40→12:27)
[2018-06-24 07:21] LABS: BASOPHILS % (AUTO) 0.3 % (0.0-2.0); EOSINOPHILS % (AUTO) 1.2 % (0.0-6.0); HEMATOCRIT 32 % (33-45); HEMOGLOBIN 10.5 g/dL (11.5-14.8); LYMPHOCYTES # (AUTO) 0.6 /CMM (0.8-4.8); LYMPHOCYTES % (AUTO) 7.1 % (20.0-44.0); MEAN CORPUSCULAR HEMOGLOBIN 28 PG (26.0-33.0); MEAN CORPUSCULAR HGB CONC 33 g/dl (31.0-36.0); MEAN CORPUSCULAR VOLUME 85 fL (82-100); MONOCYTES # (AUTO) 0.6 /CMM (0.1-1.30); MONOCYTES % (AUTO) 6.7 % (2.0-12.0); NEUTROPHILS # (AUTO) 7.2 /CMM (1.8-8.9); NEUTROPHILS % (AUTO) 84.7 % (43.0-81.0); PLATELET COUNT (AUTO) 477 /CMM (150-450); RED BLOOD CELL COUNT(AUTO) 3.79 MIL/uL (4.0-5.2); WHITE BLOOD COUNT (AUTO) 8.6 K/uL (4.3-11.0)
[2018-06-24 07:41] LABS: CALCIUM, SERUM 8.7 mg/dL (8.5-10.1); CREATININE 0.7 mg/dL (0.6-1.3); MAGNESIUM 1.4 mg/dL (1.8-2.4); PHOSPHORUS 3.5 mg/dL (2.5-4.9); POTASSIUM 3.8 mmol/L (3.5-5.1)
[2018-06-24 08:00] VITALS: BP 97/66
[2018-06-24] MEDS ORDERED: DIATR MEGLU/DIATRIZOATE SODIUM 120 ML BOTTLE (GASTROGRAPHIN) ONE (08:35)
[2018-06-24] MEDS: Magnesium 1GM/D5W 100ML PREMIX 100 ML IV SCH ×4 (12:46→18:41)
[2018-06-24 16:00] VITALS: BP 130/80
[2018-06-24 21:00] VITALS: BP 121/81
[2018-06-25] MEDS: PIPERACILLIN /TAZOBACTAM 2.25 G in IV D5W 50 ML IV SCH ×4 (03:43→21:49)
[2018-06-25] MEDS: METRONIDAZOLE 500MG/ NS 100ML 500 MG in PREMIX 1 EA IV SCH ×2 (05:16→15:31)
[2018-06-25] MEDS: IV D5/0.45 NACL 1,000 ML IV PRN (05:16)
[2018-06-25 06:20] LABS: BASOPHILS % (AUTO) 0.1 % (0.0-2.0); EOSINOPHILS % (AUTO) 2.2 % (0.0-6.0); HEMATOCRIT 31 % (33-45); HEMOGLOBIN 9.9 g/dL (11.5-14.8); LYMPHOCYTES # (AUTO) 0.4 /CMM (0.8-4.8); LYMPHOCYTES % (AUTO) 7.4 % (20.0-44.0); MEAN CORPUSCULAR HEMOGLOBIN 27 PG (26.0-33.0); MEAN CORPUSCULAR HGB CONC 32 g/dl (31.0-36.0); MEAN CORPUSCULAR VOLUME 85 fL (82-100); MONOCYTES # (AUTO) 0.7 /CMM (0.1-1.30); NEUTROPHILS # (AUTO) 4.3 /CMM (1.8-8.9); NEUTROPHILS % (AUTO) 77.3 % (43.0-81.0); PLATELET COUNT (AUTO) 443 /CMM (150-450); RDW COEFFICIENT OF VARIATION 16.2 (11.5-15.0); RED BLOOD CELL COUNT(AUTO) 3.67 MIL/uL (4.0-5.2); WHITE BLOOD COUNT (AUTO) 5.6 K/uL (4.3-11.0)
[2018-06-25 06:40] LABS: CALCIUM, SERUM 8.4 mg/dL (8.5-10.1); CREATININE 0.9 mg/dL (0.6-1.3); MAGNESIUM 2.1 mg/dL (1.8-2.4); PHOSPHORUS 3.2 mg/dL (2.5-4.9); POTASSIUM 3.1 mmol/L (3.5-5.1)
[2018-06-25 08:00] VITALS: BP 122/75
[2018-06-25] MEDS: POTASSIUM CL. PREMIX PERIPHER. 50 ML IV SCH ×4 (11:07→18:50)
[2018-06-25 16:00] VITALS: BP 116/70
[2018-06-25 20:00] VITALS: BP 126/75
[2018-06-26] MEDS: ONDANSETRON HCL/PF 4 MG/2 ML VIAL IVP PRN ×2 (01:24→06:34)
[2018-06-26] MEDS: IV D5/0.45 NACL 1,000 ML IV PRN (01:25)
[2018-06-26 06:52] LABS: CALCIUM, SERUM 7.9 mg/dL (8.5-10.1); CREATININE 0.6 mg/dL (0.6-1.3)
[2018-06-26 06:54] LABS: POTASSIUM 2.6 mmol/L (3.5-5.1)
[2018-06-26 08:30] VITALS: BP 122/75
[2018-06-26 09:00] VITALS: BP 122/75
[2018-06-26] MEDS ORDERED: POTASSIUM CL. PREMIX PERIPHER. 50 ML IV SCH (13:00)
[2018-06-26] MEDS ORDERED: POTASSIUM CHLORIDE 10 MEQ/50 ML PREMIXED IVPB FOR PERIPHERAL LINE IV SCH (13:00)
[2018-06-26 15:56] VITALS: BP 116/71
== END 2018-06-26 19:00 | disposition home or self-care (01) | DRG 389 ==
LOC: ER 07:51 → MED 12:29
PROVIDERS: ADMIT Student in an Organized Health Care Education/Training Program; ATTEND Student in an Organized Health Care Education/Training Program
DX: K56.600 Partial intestinal obstruction, unspecified as to cause (principal); E44.0 Moderate protein-calorie malnutrition; C90.00 Multiple myeloma not having achieved remission; F41.9 Anxiety disorder, unspecified; E03.9 Hypothyroidism, unspecified; E66.9 Obesity, unspecified; E87.6 Hypokalemia; F32.9 Major depressive disorder, single episode, unspecified; K21.9 Gastro-esophageal reflux disease without esophagitis; Z87.891 Personal history of nicotine dependence; Z93.3 Colostomy status; D64.9 Anemia, unspecified; M81.0 Age-related osteoporosis without current pathological fracture; Z85.850 Personal history of malignant neoplasm of thyroid; Z90.49 Acquired absence of other specified parts of digestive tract; Z68.27 Body mass index [BMI] 27.0-27.9, adult; M19.90 Unspecified osteoarthritis, unspecified site; K56.7 Ileus, unspecified; Z71.3 Dietary counseling and surveillance
CPT/HCPCS: 36415; 71045-TC; 74018; 74250-TC; 80048-TC; 80061-TC; 80076-TC; 83605-TC; 83690-TC; 83735-TC; 84100-TC; 85025-TC; 85730-TC; 87040-TC; 87081-TC; A4216; A4606; A6403; J1170; J2270; J2405; J2543; J3475; J3480; J3490; J7030; J7050; J7060; J7070; Q9963; Q9967; Z7610